=== PATIENT | male | born 2000 | race African-American/Black ===

== ENCOUNTER 2022-03-08 18:51 | Emergency (ER) | payer SELFPAY ==
[2022-03-08 19:09] VITALS: RESP 18; TEMP 97.7
--- NOTE | 2022-03-08 19:42 | ED ---
General Adult HPI - General Chief complaint: Psychiatric Symptoms Stated complaint: Mental health eval Time Seen by Provider: 03/08/22 18:53 Source: EMS Mode of arrival: EMS Limitations: no limitations - History of Present Illness Initial comments: Dictation was produced using [employer] dictation software. please excuse any grammatical, word or spelling errors. Chief Complaint: 21-year-old male presents emergency department for suicidal comments History of Present Illness: Patient's 21-year-old male brought in by EMS with report from police. Patient made suicidal comments earlier. He states he is having a mental breakdown because the mother of his children is not letting him see his children. Patient states he is depressed because of that. Patient does not feel suicidal or homicidal anymore. As a visual auditory hallucinations. Patient has any medical complaints at this time. The ROS documented in this emergency department record has been reviewed and confirmed by me. Those systems with pertinent positive or negative responses have been documented in the HPI. All other systems are other negative and/or noncontributory. PHYSICAL EXAM: General Impression: Alert and oriented x3, not in acute distress HEENT: Normocephalic atraumatic, extra-ocular movements intact, pupils equal and reactive to light bilaterally, mucous membranes moist. Cardiovascular: Heart regular rate and rhythm Chest: Able to complete full sentences, no retractions, no tachypnea Musculoskeletal: Pulses present and equal in all extremities, no peripheral edema Motor: no focal deficits noted Neurological: CN II-XII grossly intact, no focal motor or sensory deficits noted Skin: Intact with no visualized rashes Psych: Normal affect and mood ED course: 21-year-old male presents to the emergency department for suicidal comments. Vital signs upon arrival are within acceptable limits. Physical examination is benign. Patient medically cleared for EPS. Patient evaluated by EPS. Patient is cleared from a psych perspective. Apparently there is several warrants for his arrest. Disposition to long-term. - Related Data Home Medications Medication Instructions Recorded Confirmed No Known Home Medications 03/08/22 03/08/22 Allergies Allergy/AdvReac Type Severity Reaction Status Date / Time No Known Allergies Allergy Verified 03/08/22 19:48 Review of Systems ROS Statement: Those systems with pertinent positive or pertinent negative responses have been documented in the HPI. ROS Other: All systems not noted in ROS Statement are negative. Past Medical History Past Medical History: No Reported History History of Any Multi-Drug Resistant Organisms: None Reported Past Surgical History: No Surgical Hx Reported Past Psychological History: Anxiety Smoking Status: Current every day smoker Past Alcohol Use History: Occasional Past Drug Use History: Marijuana General Exam Limitations: no limitations Course Vital Signs 03/08/22 19:03 Temperature 97.7 F Pulse Rate 78 Respiratory 18 Rate Blood Pressure 106/66 O2 Sat by Pulse 95 Oximetry Disposition Clinical Impression: Suicidal ideation Disposition: OTHER INSTITUTION NOT DEFINED Condition: Good Instructions (If sedation given, give patient instructions): Help Prevent Suicide (ED) Is patient prescribed a controlled substance at d/c from ED?: No Referrals: Jaime Sloan MD [Primary Care Provider] - 1-2 days Time of Disposition: 23:19 - Out of Hospital Transfer - Req. Specs Out of Hospital Transfer - Requested Specifics: Other Non-Acute (Correction)
[2022-03-09 00:04] VITALS: BP 110/72; PULSE 67
== END 2022-03-09 00:06 | disposition other institution (70) ==
LOC: EC 18:51
DX: R45.851 Suicidal ideations (principal); F17.200 Nicotine dependence, unspecified, uncomplicated
CPT/HCPCS: 82075; 99285